=== PATIENT | male | born 1985 | race Caucasian/White ===

== ENCOUNTER 2018-01-20 18:33 | Emergency (ER) | payer OTHER ==
[2018-01-20] MEDS ORDERED: Aspirin 81 MG Tab.Chew PO ONE (19:06)
[2018-01-20] MEDS ORDERED: Sodium Chloride 0.9% 1,000 ML IV ONE (19:06)
[2018-01-20] MEDS ORDERED: GI Cocktail Oral Solution 30 ML PO ONE (19:29)
[2018-01-20] MEDS ORDERED: Pantoprazole 40 MG Vial IVPUSH ONE (19:29)
--- NOTE | 2018-01-20 19:36 | EDM.PDOC ---
ED HPI GENERAL MEDICAL PROBLEM - General Chief Complaint: Chest Pain Stated Complaint: Chest Pain Time Seen by Provider: 01/20/18 18:34 Source of Information: Reports: Patient, Family, RN, RN Notes Reviewed History Limitations: Reports: No Limitations - History of Present Illness INITIAL COMMENTS - FREE TEXT/NARRATIVE: Patient presents to the ED at [facility] complaining of chest pain that started around 14:30 this afternoon. Patient states his chest pain is substernal without any radiation. Patient denies any focal neurological deficits or symptoms. He states he did eat fast food for lunch. He denies any SOB. No cough. Denies any abdominal pain. Patient states his chest pain is sharp and stabbing. Pain is constant. Patient is a known diabetic on Triseba and Metformin. He sees Nephrology for nephrotic syndrome. He recently stopped taking Prednisone and start Prograf today. Patient was diagnosed with nephrotic syndrome as a child. He takes a burst dose of prednisone when he has peripheral edema and this resolves pretty quickly on the prednisone. He recently saw his PCP after one year. He ran out of his basal insulin a couple of weeks ago so his sugars have been running in the 300's. He recently seen Nephrology. It was recommend he stay off the Prednisone to see if he has any relapses. Onset: Today, Sudden Onset Date: 01/20/18 Onset Time: 14:30 Duration: Constant Location: Reports: Chest Quality: Reports: Sharp, Stabbing Severity: Moderate Improves with: Reports: None Worsens with: Reports: None Context: Denies: Activity, Sick Contact, Trauma Associated Symptoms: Reports: No Other Symptoms Mid-Sternal Chest Pain Score (Numeric/FACES): 7 - Related Data Allergies Allergy/AdvReac Type Severity Reaction Status Date / Time No Known Allergies Allergy Verified 01/20/18 20:05 ED ROS GENERAL - Review of Systems Review Of Systems: See Below Constitutional: Denies: Fever, Chills, Weakness Respiratory: Denies: Shortness of Breath, Cough Cardiovascular: Reports: Chest Pain. Denies: Blood Pressure Problem, Palpitations GI/Abdominal: Denies: Abdominal Pain, Nausea, Vomiting Skin: Reports: No Symptoms Neurological: Reports: No Symptoms. Denies: Dizziness, Headache ED EXAM, GENERAL - Physical Exam Exam: See Below Exam Limited By: No Limitations General Appearance: Alert, No Apparent Distress Respiratory/Chest: No Respiratory Distress, Lungs Clear, Normal Breath Sounds Cardiovascular: Normal Peripheral Pulses, Regular Rate, Rhythm, No Edema Peripheral Pulses: 2+: Radial (L), Radial (R) GI/Abdominal: Normal Bowel Sounds, Soft, Non-Tender Neurological: Alert, Oriented Skin Exam: Warm, Dry, Intact, Normal Color EKG INTERPRETATION EKG Date: 01/20/18 Time: 18:43 Rhythm: NSR Rate (Beats/Min): 73 [place]: Normal P-Wave: Present QRS: Normal ST-T: Normal QT: Normal ID/PQ Interval: 0.16 Comparison: NA - No Prior EKG EKG Interpretation Comments: 1. Sinus Rhythm 2. Low voltage QRS in precordial leads Course - Vital Signs Last Recorded V/S: Last Vital Signs Temp 36.6 C 01/20/18 19:56 Pulse 76 01/20/18 19:56 Resp 16 01/20/18 19:56 BP 142/99 H 01/20/18 19:56 Pulse Ox 96 01/20/18 19:56 - Orders/Labs/Meds Orders: Active Orders 24 hr Category Date Time Status EKG 12 Lead [EKG Documentation Completion] [RC] STAT Care 01/20/18 18:42 Active Chest 2V [CR] Stat Exams 01/20/18 18:38 Taken Chest PE [Ang Chest] [CT] Stat Exams 01/20/18 19:56 Taken Peripheral IV Discontinue [OM.PC] Routine Oth 01/20/18 18:47 Ordered Labs: Laboratory Tests 01/20/18 01/20/18 01/20/18 Range/Units 18:58 18:58 18:58 WBC 9.2 (4.0-10.0) x10^3/uL RBC 5.53 (4.5-6.0) x10^6/uL Hgb 16.7 (14.0-18.0) g/dL Hct 45.9 (40.0-52.0) % MCV 83.0 (78.0-93.0) fL MCH 30.2 (26.0-32.0) pg MCHC 36.4 H (32.0-36.0) g/dL RDW Coeff of Ying 12.6 (10.0-15.0) % Plt Count 278 (130-400) x10^3/uL Neut % (Auto) 59.4 (50.0-80.0) % Lymph % (Auto) 32.2 (25.0-50.0) % [place] % (Auto) 6.2 (2.0-11.0) % Eos % (Auto) 2.0 (0.0-4.0) % Baso % (Auto) 0.2 (0.2-1.2) % PT (9.6-11.4) SEC INR (2.0-3.5) D-Dimer, Quantitative 0.70 H (<=0.58) mg/LFEU Sodium 137 (136-145) mmol/L Potassium 4.2 (3.5-5.1) mmol/L Chloride 105 (98-107) mmol/L Carbon Dioxide 25 (21-32) mmol/L Anion Gap 11.2 (10-20) mmol/L BUN 10 (7-18) mg/dL Creatinine 0.7 (0.70-1.30) mg/dL Est Cr Clr Drug Dosing TNP Estimated GFR (MDRD) > 60 Glucose 209 H (74-106) mg/dL Calcium 9.2 (8.5-10.1) mg/dL Corrected Calcium 10.88 H (8.5-10.1) mg/dL Total Bilirubin 0.2 (0.2-1.0) mg/dL AST 21 (15-37) U/L ALT 37 (16-63) U/L Alkaline Phosphatase 83 (46-116) U/L Creatine Kinase 92 (39-308) U/L POC Troponin I (0.00-0.08) ng/mL Total Protein 6.4 (6.4-8.2) g/dL Albumin 1.9 L (3.4-5.0) g/dL Globulin 4.5 Albumin/Globulin Ratio 0.42 01/20/18 01/20/18 Range/Units 18:58 19:09 WBC (4.0-10.0) x10^3/uL RBC (4.5-6.0) x10^6/uL Hgb (14.0-18.0) g/dL Hct (40.0-52.0) % MCV (78.0-93.0) fL MCH (26.0-32.0) pg MCHC (32.0-36.0) g/dL RDW Coeff of Ying (10.0-15.0) % Plt Count (130-400) x10^3/uL Neut % (Auto) (50.0-80.0) % Lymph % (Auto) (25.0-50.0) % [place] % (Auto) (2.0-11.0) % Eos % (Auto) (0.0-4.0) % Baso % (Auto) (0.2-1.2) % PT 9.3 L (9.6-11.4) SEC INR 0.9 L (2.0-3.5) D-Dimer, Quantitative (<=0.58) mg/LFEU Sodium (136-145) mmol/L Potassium (3.5-5.1) mmol/L Chloride (98-107) mmol/L Carbon Dioxide (21-32) mmol/L Anion Gap (10-20) mmol/L BUN (7-18) mg/dL Creatinine (0.70-1.30) mg/dL Est Cr Clr Drug Dosing Estimated GFR (MDRD) Glucose (74-106) mg/dL Calcium (8.5-10.1) mg/dL Corrected Calcium (8.5-10.1) mg/dL Total Bilirubin (0.2-1.0) mg/dL AST (15-37) U/L ALT (16-63) U/L Alkaline Phosphatase (46-116) U/L Creatine Kinase (39-308) U/L POC Troponin I 0.01 (0.00-0.08) ng/mL Total Protein (6.4-8.2) g/dL Albumin (3.4-5.0) g/dL Globulin Albumin/Globulin Ratio Meds: Medications Discontinued Medications Generic Name Dose Route Start Last Admin Trade Name Freq PRN Reason Stop Dose Admin Al Hydroxide/Mg Hydroxide 30 ml 01/20/18 19:29 01/20/18 19:50 Gi Cocktail PO 01/20/18 19:30 30 ml ONETIME ONE Administration Aspirin 324 mg 01/20/18 19:06 01/20/18 19:30 Aspirin PO 01/20/18 19:07 324 mg ONETIME ONE Administration Sodium Chloride 1,000 mls @ 999 mls/hr 01/20/18 19:06 01/20/18 19:32 Normal Saline IV 01/20/18 20:06 999 mls/hr ONETIME ONE Administration Iopamidol 100 ml 01/20/18 20:35 01/20/18 20:35 Isovue-300 (61%) IVPUSH 01/20/18 20:36 100 ml ONETIME ONE Administration Pantoprazole Sodium 40 mg 01/20/18 19:29 01/20/18 19:52 Protonix Iv IVPUSH 01/20/18 19:30 40 mg ONETIME ONE Administration - Radiology Interpretation Free Text/Narrative:: CXR: Normal examination of the chest CTA Chest: Negative for PE, normal exam See scanned reports in EMR CT Results Date: 01/20/18 CT Results Time: 20:55 - Re-Assessments/Exams Free Text/Narrative Re-Assessment/Exam: 01/20/18 20:54 Visited with patient and his regarding all tests. Does not appear to be cardiac in nature at this point. Patient is very vague with his symptoms at this point. He states he still feels "some pressure" but can not really characterize it. The pain is improved but he is not sure how much improved. VSS. No changes since patient was admitted. Departure - Departure Time of Disposition: 21:01 Disposition: Home, Self-Care 01 Reason for Transfer *Q: Other Condition: Good Clinical Impression: Atypical chest pain Instructions: Nonspecific Chest Pain Referrals: Lui De Guzman MD [Primary Care Provider] - Forms: ED Department Discharge Additional Instructions: 1. Stay well hydrated and rest 2. Eat a bland diet, avoid greasy fatty foods for the next few days 3. May use OTC tums or Prilosec if symptoms return 4. See your Primary in clinic for follow up as symptoms warrant - Problem List Review Problem List Initiated/Reviewed/Updated: Yes - My Orders Last 24 Hours: My Active Orders 01/20/18 18:38 Chest 2V [CR] Stat 01/20/18 18:42 EKG 12 Lead [EKG Documentation Completion] [RC] STAT 01/20/18 18:47 Peripheral IV Discontinue [OM.PC] Routine 01/20/18 19:56 Chest PE [Ang Chest] [CT] Stat - Assessment/Plan Last 24 Hours: My Active Orders 01/20/18 18:38 Chest 2V [CR] Stat 01/20/18 18:42 EKG 12 Lead [EKG Documentation Completion] [RC] STAT 01/20/18 18:47 Peripheral IV Discontinue [OM.PC] Routine 01/20/18 19:56 Chest PE [Ang Chest] [CT] Stat Assessment:: Atypical chest pain Plan: Reviewed CT and labs again with patient. Suspect this is more GERD than cardiac etiology. I did offer admission for serial enzymes but patient declined. Recommend follow up with PCP. If chest pain returns, needs to come back to ER. I did discussed with patient and they may want to have the gallblader worked up as an outpatient. Patient verbalized understanding and agrees with POC.
[2018-01-20 19:38] LABS: ANION GAP 11.2 mmol/L (10-20); CHLORIDE,CL 105 mmol/L (98-107); SODIUM,NA 137 mmol/L (136-145)
[2018-01-20] MEDS ORDERED: Iopamidol 612 MG/ML 100 ML Bottle IVPUSH ONE (20:35)
== END 2018-01-20 21:07 | disposition home or self-care (01) ==
LOC: VM.ED 18:33
DX: R07.89 Other chest pain (principal); E11.9 Type 2 diabetes mellitus without complications; Z79.84 Long term (current) use of oral hypoglycemic drugs
CPT/HCPCS: 36415; 71046; 71275; 80053; 82550; 84484; 85025; 85379; 85610; 93005; 96361; 96374; 99285; A9270-GY; C9113; J7030; Q9967

== ENCOUNTER 2018-08-29 10:44 | Inpatient (IN) | payer OTHER ==
[2018-08-29] MEDS ORDERED: Sodium Chloride 0.9% 10 ML Syringe FLUSH PRN (10:52)
[2018-08-29] MEDS ORDERED: Ondansetron 4 MG/2 ML SDV IVPUSH ONE (10:54)
[2018-08-29] MEDS ORDERED: Sodium Chloride 0.9% 1,000 ML IV ONE (10:54)
--- NOTE | 2018-08-29 10:57 | EDM.PDOC ---
ED HPI GENERAL MEDICAL PROBLEM - General Chief Complaint: General Stated Complaint: DEHYDRATION Time Seen by Provider: 08/29/18 10:48 Source of Information: Reports: Patient History Limitations: Reports: No Limitations - History of Present Illness INITIAL COMMENTS - FREE TEXT/NARRATIVE: Patient comes into the emergency department with complaint of abdominal discomfort.Pt was being seen at [facility] for his diabetes mellitus and nephrotic syndrome. He has recently had some changes in his medication regimen he started taking Victoza a short period of time ago. However he did not tolerate the medication he became nauseated, vomiting, and had abdominal discomfort. Once he stopped the medication he was hopeful that the symptoms would resolve. He was feeling better for "a couple days" but noticed an increase in his swelling so started taking his prednisone 60mg daily. He noticed very quickly his blood sugars elevated, he became nauseated, and has been unable to keep food down. He has so noticed a decrease in his urine output and a significant amount of abdominal pain radiating to the left flank region. He denies any recent illnesses or infections and denies any fevers. Weight: 08/08-320 08/14 327 08/29 333 Blood sugar 08/28- >400 08/29- 328 Onset: Gradual Quality: Reports: Throbbing, Other Severity: Moderate Improves with: Reports: None Worsens with: Reports: None Context: Reports: Other Associated Symptoms: Reports: Loss of Appetite, Malaise, Nausea/Vomiting, Weakness - Related Data Allergies Allergy/AdvReac Type Severity Reaction Status Date / Time No Known Allergies Allergy Verified 08/29/18 11:01 Home Meds: Home Meds Furosemide [Lasix] 20 mg PO BID 08/29/18 [History] Insulin Degludec [Tresiba] 66 unit SQ DAILY 08/29/18 [History] Liraglutide [Victoza 3-Naveed] 1.8 mg SQ DAILY 08/29/18 [History] atorvaSTATin Calcium [Lipitor] 20 mg PO DAILY 08/29/18 [History] metFORMIN HCl [Metformin HCl] 1,000 mg PO BID 08/29/18 [History] predniSONE 60 mg PO DAILY 08/29/18 [History] Past Medical History Genitourinary History: Reports: Other (See Below) Other Genitourinary History: nephrotic syndrome Endocrine/Metabolic History: Reports: Diabetes, Type II ED ROS GENERAL - Review of Systems Review Of Systems: See Below Constitutional: Reports: Decreased Appetite, Weight Gain HEENT: Reports: No Symptoms Respiratory: Reports: No Symptoms Cardiovascular: Reports: Edema Endocrine: Reports: No Symptoms GI/Abdominal: Reports: Abdominal Pain, Nausea, Vomiting : Reports: Flank Pain, Other (decrease output from his nomral ) Musculoskeletal: Reports: No Symptoms Skin: Reports: Pallor Neurological: Reports: No Symptoms Psychiatric: Reports: No Symptoms Hematologic/Lymphatic: Reports: No Symptoms Immunologic: Reports: No Symptoms ED EXAM, GENERAL - Physical Exam Exam: See Below Exam Limited By: No Limitations General Appearance: Alert, WD/WN, No Apparent Distress Eye Exam: Bilateral Eye: EOMI, PERRL Throat/Mouth: Normal Inspection, Normal Lips, No Airway Compromise Head: Atraumatic, Normocephalic Neck: Normal Inspection, Supple, Non-Tender, Full Range of Motion Respiratory/Chest: No Respiratory Distress, Lungs Clear, Normal Breath Sounds, No Accessory Muscle Use, Chest Non-Tender GI/Abdominal: Distended, Tender, Abnormal Bowel Sounds Back Exam: Normal Inspection, Full Range of Motion, Other (L flank pain upon palpation ) Extremities: Pedal Edema, Slow Capillary Refill Neurological: Alert, Oriented, Normal Cognition, Normal Gait Psychiatric: Normal Affect, Normal Mood Skin Exam: Pallor Course - Vital Signs Last Recorded V/S: Last Vital Signs Temp 36.8 C 08/29/18 13:11 Pulse 98 08/29/18 13:11 Resp 14 08/29/18 13:11 BP 133/93 H 08/29/18 13:11 Pulse Ox 99 08/29/18 13:11 - Orders/Labs/Meds Orders: Active Orders 24 hr Category Date Time Status EKG Documentation Completion [RC] STAT Care 08/29/18 10:52 Active Sodium Chloride 0.9% [Saline Flush] Med 08/29/18 10:52 Active 10 ml FLUSH ASDIRECTED PRN Peripheral IV Insertion Adult [OM.PC] Stat Oth 08/29/18 10:52 Ordered Medication Orders Atorvastatin Calcium (Lipitor) 20 mg PO DAILY [facility] Furosemide (Lasix) 20 mg IV BIDDIURETIC [facility] Sodium Chloride (Normal Saline) 1,000 mls @ 50 mls/hr IV ASDIRECTED [facility] Magnesium Sulfate 4 gm/ Premix 100 mls @ 25 mls/hr IV ONETIME ONE Stop: 08/29/18 18:26 Insulin Human Regular (Humulin R) 0 unit SUBCUT TIDMEALS [facility]; Protocol Lisinopril (Prinivil) 5 mg PO DAILY [facility] Metformin HCl (Glucophage) 1,000 mg PO BIDMEALS [facility] Non-Formulary Medication (Insulin Degludec [Tresiba]) 66 unit SQ DAILY [facility] Prednisone (Prednisone) 60 mg PO DAILY [facility] Sodium Chloride (Saline Flush) 10 ml FLUSH ASDIRECTED PRN PRN Reason: Keep Vein Open Last Admin: 08/29/18 11:23 Dose: 10 ml Labs: Laboratory Tests 08/29/18 08/29/18 08/29/18 Range/Units 11:02 11:02 11:02 WBC 14.9 H (4.0-10.0) x10^3/uL RBC 5.75 (4.5-6.0) x10^6/uL Hgb 16.9 (14.0-18.0) g/dL Hct 47.0 (40.0-52.0) % MCV 81.7 (78.0-93.0) fL MCH 29.4 (26.0-32.0) pg MCHC 36.0 (32.0-36.0) g/dL RDW Coeff of Ying 12.9 (10.0-15.0) % Plt Count 323 (130-400) x10^3/uL Neut % (Auto) 66.3 (50.0-80.0) % Lymph % (Auto) 22.6 L (25.0-50.0) % [place] % (Auto) 8.5 (2.0-11.0) % Eos % (Auto) 2.2 (0.0-4.0) % Baso % (Auto) 0.4 (0.2-1.2) % Sodium 128 L* (136-145) mmol/L Potassium 4.5 (3.5-5.1) mmol/L Chloride 96 L (98-107) mmol/L Carbon Dioxide 23 (21-32) mmol/L Anion Gap 13.5 (10-20) mmol/L BUN 33 H (7-18) mg/dL Creatinine 1.1 (0.70-1.30) mg/dL Est Cr Clr Drug Dosing TNP Estimated GFR (MDRD) > 60 Glucose 367 H (74-106) mg/dL Calcium 8.7 (8.5-10.1) mg/dL Corrected Calcium 10.62 H (8.5-10.1) mg/dL Magnesium 1.6 L (1.8-2.4) mg/dL Total Bilirubin 0.4 (0.2-1.0) mg/dL AST 9 L (15-37) U/L ALT 13 L (16-63) U/L Alkaline Phosphatase 101 (46-116) U/L NT-Pro-B Natriuret Pep 9 (<=125) pg/mL Total Protein 6.2 L (6.4-8.2) g/dL Albumin 1.6 L (3.4-5.0) g/dL Globulin 4.6 Albumin/Globulin Ratio 0.35 Amylase 18 L (25-115) U/L Lipase 103 (73-393) U/L Urine Color (YELLOW) Urine Appearance (CLEAR) Urine pH (5.0-8.0) Ur Specific [place] Urine Protein (NEGATIVE) mg/dL Urine Glucose (UA) (NEGATIVE) mg/dL Urine Ketones (NEGATIVE) mg/dL Urine Occult Blood (NEGATIVE) Urine Nitrite (NEGATIVE) Urine Bilirubin (NEGATIVE) Urine Urobilinogen (0.2) EU/dL Ur Leukocyte Esterase (NEGATIVE) Urine RBC (NOT SEEN) /HPF Urine WBC (NOT SEEN) /HPF Ur Squamous Epith Cells (NEGATIVE) /HPF Urine Bacteria (NEGATIVE) /HPF Hyaline Casts (NEGATIVE) /HPF Urine Mucus (NEGATIVE) /LPF 08/29/18 Range/Units 11:23 WBC (4.0-10.0) x10^3/uL RBC (4.5-6.0) x10^6/uL Hgb (14.0-18.0) g/dL Hct (40.0-52.0) % MCV (78.0-93.0) fL MCH (26.0-32.0) pg MCHC (32.0-36.0) g/dL RDW Coeff of Ying (10.0-15.0) % Plt Count (130-400) x10^3/uL Neut % (Auto) (50.0-80.0) % Lymph % (Auto) (25.0-50.0) % [place] % (Auto) (2.0-11.0) % Eos % (Auto) (0.0-4.0) % Baso % (Auto) (0.2-1.2) % Sodium (136-145) mmol/L Potassium (3.5-5.1) mmol/L Chloride (98-107) mmol/L Carbon Dioxide (21-32) mmol/L Anion Gap (10-20) mmol/L BUN (7-18) mg/dL Creatinine (0.70-1.30) mg/dL Est Cr Clr Drug Dosing Estimated GFR (MDRD) Glucose (74-106) mg/dL Calcium (8.5-10.1) mg/dL Corrected Calcium (8.5-10.1) mg/dL Magnesium (1.8-2.4) mg/dL Total Bilirubin (0.2-1.0) mg/dL AST (15-37) U/L ALT (16-63) U/L Alkaline Phosphatase (46-116) U/L NT-Pro-B Natriuret Pep (<=125) pg/mL Total Protein (6.4-8.2) g/dL Albumin (3.4-5.0) g/dL Globulin Albumin/Globulin Ratio Amylase (25-115) U/L Lipase (73-393) U/L Urine Color Dark yellow H (YELLOW) Urine Appearance Clear (CLEAR) Urine pH 5.5 (5.0-8.0) Ur Specific [place] >=1.030 Urine Protein >=300 H (NEGATIVE) mg/dL Urine Glucose (UA) 250 H (NEGATIVE) mg/dL Urine Ketones Negative (NEGATIVE) mg/dL Urine Occult Blood Moderate H (NEGATIVE) Urine Nitrite Negative (NEGATIVE) Urine Bilirubin Negative (NEGATIVE) Urine Urobilinogen 0.2 (0.2) EU/dL Ur Leukocyte Esterase Negative (NEGATIVE) Urine RBC 0-5 (NOT SEEN) /HPF Urine WBC 0-5 (NOT SEEN) /HPF Ur Squamous Epith Cells Not seen (NEGATIVE) /HPF Urine Bacteria Not seen (NEGATIVE) /HPF Hyaline Casts Few H (NEGATIVE) /HPF Urine Mucus Not seen (NEGATIVE) /LPF Meds: Medications Generic Name Dose Route Start Last Admin Trade Name Freq PRN Reason Stop Dose Admin Atorvastatin Calcium 20 mg 08/30/18 08:00 Lipitor PO DAILY [facility] Furosemide 20 mg 08/30/18 08:00 Lasix IV BIDDIURETIC [facility] Sodium Chloride 1,000 mls @ 50 mls/hr 08/29/18 14:15 Normal Saline IV ASDIRECTED [facility] Magnesium Sulfate 4 gm/ Premix 100 mls @ 25 mls/hr 08/29/18 14:27 IV 08/29/18 18:26 ONETIME ONE Insulin Human Regular 0 unit 08/29/18 18:00 Humulin R SUBCUT TIDMEALS [facility] Protocol Lisinopril 5 mg 08/29/18 14:15 Prinivil PO DAILY [facility] Metformin HCl 1,000 mg 08/29/18 18:00 Glucophage PO BIDMEALS [facility] Non-Formulary Medication 66 unit 08/30/18 08:00 Insulin Degludec [Tresiba] SQ DAILY [facility] Prednisone 60 mg 08/30/18 08:00 Prednisone PO DAILY [facility] Sodium Chloride 10 ml 08/29/18 10:52 08/29/18 11:23 Saline Flush FLUSH 10 ml ASDIRECTED PRN Administration Keep Vein Open Discontinued Medications Generic Name Dose Route Start Last Admin Trade Name Freq PRN Reason Stop Dose Admin Furosemide 40 mg 08/29/18 11:08 08/29/18 11:23 Lasix IV 08/29/18 11:09 40 mg ONETIME ONE Administration Sodium Chloride 1,000 mls @ 500 mls/hr 08/29/18 10:54 08/29/18 11:20 Normal Saline IV 08/29/18 12:53 500 mls/hr ONETIME ONE Administration Ondansetron HCl 4 mg 08/29/18 10:54 08/29/18 11:20 Zofran IVPUSH 08/29/18 10:55 4 mg ONETIME ONE Administration Departure - Departure Time of Disposition: 14:00 Disposition: Admitted As Inpatient 64 Clinical Impression: Hyperglycemia, Fluid retention, Dehydration, Nephrotic syndrome Uncontrolled diabetes mellitus Qualifiers: Diabetes mellitus type: type 2 Glycemic state: with hyperglycemia Qualified Code(s): E11.65 - Type 2 diabetes mellitus with hyperglycemia - Discharge Information *PRESCRIPTION DRUG MONITORING PROGRAM REVIEWED*: No *COPY OF PRESCRIPTION DRUG MONITORING REPORT IN PATIENT [place]: No - Problem List Review Problem List Initiated/Reviewed/Updated: Yes - My Orders Last 24 Hours: My Active Orders 08/29/18 10:52 EKG Documentation Completion [RC] STAT Sodium Chloride 0.9% [Saline Flush] 10 ml FLUSH ASDIRECTED PRN Peripheral IV Insertion Adult [OM.PC] Stat - Assessment/Plan Last 24 Hours: My Active Orders 08/29/18 10:52 EKG Documentation Completion [RC] STAT Sodium Chloride 0.9% [Saline Flush] 10 ml FLUSH ASDIRECTED PRN Peripheral IV Insertion Adult [OM.PC] Stat Assessment:: 1. nausea/vomiting 2. fluid retention 3. Abdominal pain/flank pain 4. hyperglycemia Plan: 1. Labs completed in the ER. 2. CT scan completed in the ER- negative findings 3. IV with fluids provided in the ER 4. Lasix 40mg IV 5. Pt still does not feel much improvement with 1 L fluids. Pt however he is no longer nauseated. 6. Critical sodium level called via lab department 7. Consult completed with Navjot Mathew. He is agreeable to admit the patient to acute care for further medical management and treatment. A consultation by Navjot Mathew was completed with Endocrinology in [place] who suggest 8. All questions and concerns were addressed
[2018-08-29] MEDS ORDERED: Furosemide 40 MG/4 ML VIAL IV ONE (11:08)
[2018-08-29 11:37] LABS: CHLORIDE,CL 96 mmol/L (98-107)
[2018-08-29 11:39] LABS: ANION GAP 13.5 mmol/L (10-20); SODIUM,NA 128 mmol/L (136-145)
--- NOTE | 2018-08-29 11:52 | CT ---
[id number] CT/CT Abdomen Pelvis WO IV EXAM: CT Abdomen Pelvis WO IV CLINICAL DATA: ABDOMINAL PAIN. COMPARISON STUDY: None. FINDINGS: No urinary tract calculi or evidence of urinary tract obstruction. Within limitations of no contrast material, remainder of the solid abdominal viscera is unremarkable. Few scattered colonic diverticula. No bowel obstruction or inflammation. Appendix is normal. No lymphadenopathy, free fluid, or pneumoperitoneum. Urinary bladder is unremarkable. Scattered changes of spondylosis the spine. No fracture or osseous lesion. IMPRESSION: Negative for urinary tract calculi, obstruction, or other acute findings in the abdomen/pelvis. Colin Zhang MD 08/29/18 [id number] Thank you for allowing us to participate in the care of your patient.
[2018-08-29] MEDS ORDERED: Sodium Chloride 0.9% 1,000 ML IV SCH (14:15)
[2018-08-29] MEDS ORDERED: Magnesium Sulfate/Water 4 GM in Premix Bag 1 BAG IV ONE (14:27)
--- NOTE | 2018-08-29 14:27 | PCM.HP ---
H&P History of Present Illness - General Date of Service: 08/29/18 Admit Problem/Dx: Admission Diagnosis/Problem Admission Diagnosis/Problem Uncontrolled diabetes mellitus Hyperglycemia Dehydration Fluid retention Nephrotic Syndrome Hyponatremia Source of Information: Patient, Old Records, RN, RN Notes Reviewed History Limitations: Reports: No Limitations - History of Present Illness Initial Comments - Free Text/Narative: 33 yo male patient presented to the [facility] earlier today for elevated blood sugars, nausea and vomiting, clinical dehydration, and abdominal pain. Given assessment findings, it was recommend patient be seen at the ED at [facility] for further workup. Patient's vitals were stable and afebrile in the ED. Labs showed a low NA of 128, glucose of 367, and positive UA. Patient was given IVF, Zofran, and Lasix in the ED. CT scan of abdomen was negative for any acute pathology. Patient was diagnosed with Nephrotic syndrome as a child. He developed Type II DM about 2 years ago. He has had difficulty in controlling his blood sugars. His nephrotic syndrome has been treated with prednisone PRN. This has exacerbated his DM and he now takes Tresiba daily concurrently with Metformin BID. he recently started seeing me as his PCP April 2018. He is being followed by Nephrology and Endocrinology. He also has been seen by CDE and will be seeing a campaign specialist next week. Patient was started on Victoza on August 08, 2018 for high A1C's of 13.1 and 11.0 respectively. He states he started having nausea shortly after starting the Victoza. He continued to take it hoping the nausea will subside. He stop taking the Victoza last Saturday. His N/V seem to get somewhat better, but over the past few days, the N/V returned much worse. He started to take Prednisone last Saturday as he noticed an increase in frothiness in his urine. He states his blood sugars have been running in the 300-400 range. He developed abdominal pain 2 days ago. No diarrhea. He has not been able to keep fluids down. His last weight was 320 on August 08 and now today it is 333. He has a PRN Lasix order at home but states he did not take any for his water weight gain. Dry weight is unknown. Patient denies any chest pain or SOB. No focal neurological problems. No skin issues. Decision was made to admit patient for hyperglycemia in the setting of Type II DM on Prednisone. - Related Data Allergies/Adverse Reactions: Allergies Allergy/AdvReac Type Severity Reaction Status Date / Time No Known Allergies Allergy Verified 08/29/18 11:01 Home Medications: Home Meds Furosemide [Lasix] 20 mg PO BID 08/29/18 [History] Insulin Degludec [Tresiba] 66 unit SQ DAILY 08/29/18 [History] Liraglutide [Victoza 3-Naveed] 1.8 mg SQ DAILY 08/29/18 [History] atorvaSTATin Calcium [Lipitor] 20 mg PO DAILY 08/29/18 [History] metFORMIN HCl [Metformin HCl] 1,000 mg PO BID 08/29/18 [History] predniSONE 60 mg PO DAILY 08/29/18 [History] Past Medical History Genitourinary History: Reports: Other (See Below) Other Genitourinary History: nephrotic syndrome Endocrine/Metabolic History: Reports: Diabetes, Type II Social & Family History - Tobacco Use Smoking Status *Q: Never Smoker Second Hand Smoke Exposure: No - Caffeine Use Caffeine Use: Reports: Coffee, Soda - Recreational Drug Use Recreational Drug Use: No H&P Review of Systems - Review of Systems: Review Of Systems: See Below General: Reports: Weakness. Denies: Fever, Chills Pulmonary: Denies: Shortness of Breath, Cough Cardiovascular: Denies: Chest Pain, Palpitations Gastrointestinal: Reports: Abdominal Pain, Nausea, Vomiting. Denies: Diarrhea Genitourinary: Reports: Frequency Skin: Reports: No Symptoms Neurological: Reports: No Symptoms Exam - Exam Exam: See Below - Vital Signs Vital Signs: Last Vital Signs Temp 36.8 C 08/29/18 13:11 Pulse 98 08/29/18 13:11 Resp 14 08/29/18 13:11 BP 133/93 H 08/29/18 13:11 Pulse Ox 99 08/29/18 13:11 Weight: 150.338 kg - Exam Quality Assessment: No: DVT Prophylaxis, Skin Breakdown General: Alert, Oriented, Cooperative Lungs: Clear to Auscultation, Normal Respiratory Effort Cardiovascular: Regular Rate, Regular Rhythm GI/Abdominal Exam: Soft, Tender (General), Abnormal Bowel Sounds (Hypoactive) Extremities: Pedal Edema (+2 dependent pitting) Peripheral Pulses: 2+: Radial (L), Radial (R) Skin: Warm, Dry, Intact Neuro Extensive - Mental Status: Alert, Oriented x3 - Patient Data Lab Results Last 24 hrs: Laboratory Results - last 24 hr 08/29/18 08/29/18 08/29/18 Range/Units 11:02 11:02 11:02 WBC 14.9 H (4.0-10.0) x10^3/uL RBC 5.75 (4.5-6.0) x10^6/uL Hgb 16.9 (14.0-18.0) g/dL Hct 47.0 (40.0-52.0) % MCV 81.7 (78.0-93.0) fL MCH 29.4 (26.0-32.0) pg MCHC 36.0 (32.0-36.0) g/dL RDW Coeff of Ying 12.9 (10.0-15.0) % Plt Count 323 (130-400) x10^3/uL Neut % (Auto) 66.3 (50.0-80.0) % Lymph % (Auto) 22.6 L (25.0-50.0) % [place] % (Auto) 8.5 (2.0-11.0) % Eos % (Auto) 2.2 (0.0-4.0) % Baso % (Auto) 0.4 (0.2-1.2) % Sodium 128 L* (136-145) mmol/L Potassium 4.5 (3.5-5.1) mmol/L Chloride 96 L (98-107) mmol/L Carbon Dioxide 23 (21-32) mmol/L Anion Gap 13.5 (10-20) mmol/L BUN 33 H (7-18) mg/dL Creatinine 1.1 (0.70-1.30) mg/dL Est Cr Clr Drug Dosing TNP Estimated GFR (MDRD) > 60 Glucose 367 H (74-106) mg/dL Calcium 8.7 (8.5-10.1) mg/dL Corrected Calcium 10.62 H (8.5-10.1) mg/dL Magnesium 1.6 L (1.8-2.4) mg/dL Total Bilirubin 0.4 (0.2-1.0) mg/dL AST 9 L (15-37) U/L ALT 13 L (16-63) U/L Alkaline Phosphatase 101 (46-116) U/L NT-Pro-B Natriuret Pep 9 (<=125) pg/mL Total Protein 6.2 L (6.4-8.2) g/dL Albumin 1.6 L (3.4-5.0) g/dL Globulin 4.6 Albumin/Globulin Ratio 0.35 Amylase 18 L (25-115) U/L Lipase 103 (73-393) U/L Urine Color (YELLOW) Urine Appearance (CLEAR) Urine pH (5.0-8.0) Ur Specific [place] Urine Protein (NEGATIVE) mg/dL Urine Glucose (UA) (NEGATIVE) mg/dL Urine Ketones (NEGATIVE) mg/dL Urine Occult Blood (NEGATIVE) Urine Nitrite (NEGATIVE) Urine Bilirubin (NEGATIVE) Urine Urobilinogen (0.2) EU/dL Ur Leukocyte Esterase (NEGATIVE) Urine RBC (NOT SEEN) /HPF Urine WBC (NOT SEEN) /HPF Ur Squamous Epith Cells (NEGATIVE) /HPF Urine Bacteria (NEGATIVE) /HPF Hyaline Casts (NEGATIVE) /HPF Urine Mucus (NEGATIVE) /LPF 08/29/18 Range/Units 11:23 WBC (4.0-10.0) x10^3/uL RBC (4.5-6.0) x10^6/uL Hgb (14.0-18.0) g/dL Hct (40.0-52.0) % MCV (78.0-93.0) fL MCH (26.0-32.0) pg MCHC (32.0-36.0) g/dL RDW Coeff of Ying (10.0-15.0) % Plt Count (130-400) x10^3/uL Neut % (Auto) (50.0-80.0) % Lymph % (Auto) (25.0-50.0) % [place] % (Auto) (2.0-11.0) % Eos % (Auto) (0.0-4.0) % Baso % (Auto) (0.2-1.2) % Sodium (136-145) mmol/L Potassium (3.5-5.1) mmol/L Chloride (98-107) mmol/L Carbon Dioxide (21-32) mmol/L Anion Gap (10-20) mmol/L BUN (7-18) mg/dL Creatinine (0.70-1.30) mg/dL Est Cr Clr Drug Dosing Estimated GFR (MDRD) Glucose (74-106) mg/dL Calcium (8.5-10.1) mg/dL Corrected Calcium (8.5-10.1) mg/dL Magnesium (1.8-2.4) mg/dL Total Bilirubin (0.2-1.0) mg/dL AST (15-37) U/L ALT (16-63) U/L Alkaline Phosphatase (46-116) U/L NT-Pro-B Natriuret Pep (<=125) pg/mL Total Protein (6.4-8.2) g/dL Albumin (3.4-5.0) g/dL Globulin Albumin/Globulin Ratio Amylase (25-115) U/L Lipase (73-393) U/L Urine Color Dark yellow H (YELLOW) Urine Appearance Clear (CLEAR) Urine pH 5.5 (5.0-8.0) Ur Specific [place] >=1.030 Urine Protein >=300 H (NEGATIVE) mg/dL Urine Glucose (UA) 250 H (NEGATIVE) mg/dL Urine Ketones Negative (NEGATIVE) mg/dL Urine Occult Blood Moderate H (NEGATIVE) Urine Nitrite Negative (NEGATIVE) Urine Bilirubin Negative (NEGATIVE) Urine Urobilinogen 0.2 (0.2) EU/dL Ur Leukocyte Esterase Negative (NEGATIVE) Urine RBC 0-5 (NOT SEEN) /HPF Urine WBC 0-5 (NOT SEEN) /HPF Ur Squamous Epith Cells Not seen (NEGATIVE) /HPF Urine Bacteria Not seen (NEGATIVE) /HPF Hyaline Casts Few H (NEGATIVE) /HPF Urine Mucus Not seen (NEGATIVE) /LPF Result Diagrams: 08/29/18 11:02 08/29/18 11:02 Jay Results Last 24 hrs: Microbiology 08/29/18 10:58 Influenza Type A Antigen Screen - Final Nasal Aspirate, Unspecified NEGATIVE INFLUENZA A VIRUS AG Influenza Type B Antigen Screen - Final NEGATIVE INFLUENZA B VIRUS AG *Q Meaningful Use (ADM) - VTE *Q VTE Criteria *Q: No risk for fall No risk for VTE - Problem List (1) Uncontrolled diabetes mellitus SNOMED Code(s): 44582432, 193359950 ICD Code: E11.65 - TYPE 2 DIABETES MELLITUS WITH HYPERGLYCEMIA Status: Chronic Priority: High Current Visit: Yes Qualifiers: Diabetes mellitus type: type 2 Glycemic state: with hyperglycemia Qualified Code(s): E11.65 - Type 2 diabetes mellitus with hyperglycemia (2) Hyperglycemia SNOMED Code(s): 58472881 ICD Code: R73.9 - HYPERGLYCEMIA, UNSPECIFIED Status: Acute Priority: High Current Visit: Yes (3) Dehydration SNOMED Code(s): 24929642 ICD Code: E86.0 - DEHYDRATION Status: Acute Priority: Medium Current Visit: Yes (4) Fluid retention SNOMED Code(s): 91759894 ICD Code: R60.9 - EDEMA, UNSPECIFIED Status: Acute Priority: Medium Current Visit: Yes (5) Nephrotic syndrome SNOMED Code(s): 67978383 ICD Code: N04.9 - NEPHROTIC SYNDROME WITH UNSPECIFIED MORPHOLOGIC CHANGES Status: Chronic Current Visit: Yes (6) Hyponatremia SNOMED Code(s): 32449186 ICD Code: E87.1 - HYPO-OSMOLALITY AND HYPONATREMIA Status: Acute Priority : Medium Current Visit: Yes Problem List Initiated/Reviewed/Updated: Yes Orders Last 24hrs: Active Orders 24 hr Category Date Time Status Patient Status [ADT] Routine ADT 08/29/18 13:54 Ordered Accu Check [Blood Glucose Check, Bedside] [RC] Care 08/29/18 14:02 Ordered QIDACANDBED EKG Documentation Completion [RC] STAT Care 08/29/18 10:52 Active Height and Weight [RC] DAILY Care 08/29/18 13:53 Ordered Intake and Output [RC] QSHIFT Care 08/29/18 13:55 Ordered May Shower [RC] ASDIRECTED Care 08/29/18 13:53 Ordered Oxygen Therapy [RC] PRN Care 08/29/18 13:54 Ordered Up ad Yajaira [RC] ASDIRECTED Care 08/29/18 13:53 Ordered VTE/DVT Education [RC] PER UNIT ROUTINE Care 08/29/18 13:54 Ordered Vital Signs [RC] Q4H Care 08/29/18 13:54 Ordered Consult to Case Management/Environmental Epidemiologist [CONS] Cons 08/29/18 13:53 Ordered Routine [employer] Diet [DIET] Diet 08/29/18 Breakfast Active Low Sodium [Sodium Restricted Diet] [DIET] Diet 08/29/18 Dinner Ordered BASIC METABOLIC PANEL,BMP [CHEM] Routine Lab 08/30/18 05:11 Ordered CBC WITH AUTO DIFF [HEME] Routine Lab 08/30/18 05:11 Ordered MAGNESIUM [CHEM] Routine Lab 08/30/18 05:11 Ordered PHOSPHORUS [CHEM] Routine Lab 08/30/18 05:11 Ordered Furosemide [Lasix] Med 08/30/18 08:00 Ordered 20 mg IV BIDDIURETIC Insulin Degludec [Tresiba] Med 08/30/18 08:00 Ordered 66 unit SQ DAILY Insulin Regular, Human [HumuLIN R] Med 08/29/18 18:00 Ordered See Protocol SUBCUT TIDMEALS Lisinopril [Prinivil] Med 08/29/18 14:15 Ordered 5 mg PO DAILY Sodium Chloride 0.9% @ 50 MLS/HR(1000ml) Med 08/29/18 14:15 Ordered Sodium Chloride 0.9% [Normal Saline] 1,000 ml IV ASDIRECTED Sodium Chloride 0.9% [Saline Flush] Med 08/29/18 10:52 Active 10 ml FLUSH ASDIRECTED PRN atorvaSTATin Calcium [Lipitor] Med 08/29/18 20:00 Ordered 20 mg PO DAILY metFORMIN HCl [Metformin HCl] Med 08/29/18 20:00 Ordered 1,000 mg PO BID predniSONE Med 08/30/18 08:00 Ordered 60 mg PO DAILY Do Not Administer NSAID Medications [AST] Click To Edit Oth 08/29/18 14:10 Ordered Peripheral IV Insertion Adult [OM.PC] Stat Oth 08/29/18 10:52 Ordered Resuscitation Status Routine Resus Stat 08/29/18 13:53 Ordered Medication Orders Furosemide (Lasix) 20 mg IV BIDDIURETIC ESTEBAN Sodium Chloride (Normal Saline) 1,000 mls @ 50 mls/hr IV ASDIRECTED ESTEBAN Insulin Human Regular (Humulin R) 0 unit SUBCUT TIDMEALS ESTEBAN; Protocol Lisinopril (Prinivil) 5 mg PO DAILY ESTEBAN Non-Formulary Medication (Atorvastatin Calcium [Lipitor]) 20 mg PO DAILY ESTEBAN Non-Formulary Medication (Insulin Degludec [Tresiba]) 66 unit SQ DAILY ESTEBAN Non-Formulary Medication (Metformin Hcl [Metformin Hcl]) 1,000 mg PO BID ESTEBAN Prednisone (Prednisone) 60 mg PO DAILY ESTEBAN Sodium Chloride (Saline Flush) 10 ml FLUSH ASDIRECTED PRN PRN Reason: Keep Vein Open Last Admin: 08/29/18 11:23 Dose: 10 ml Assessment/Plan Comment:: 33 yo male patient with a past medical history of Type II DM, Mixed hyperlipidemia, Nephrotic Syndrome, and obesity is admitted to the acute care floor at [facility] for uncontrolled DM with hyperglycemia, dehydration, fluid retention, N/V, and abdominal pain. Will gently rehydration with IVF watching weights carefully. IV lasix for fluid retention. Stop Victoza and start medium dose SSI. Check blood sugars TID meals and AC/HS. Goal for blood sugars is <130 with a target A1C of <7.0%. WBC's elevated due to hyperglycemia , no infection indicated. Replace Magnesium. No NSAIDS or IV contrast dye 2/2 to Nephrotic Syndrome. ADA diet with 1.5 gram sodium restriction. Early ambulation for DVT prophylaxis. Full Code. Patient agrees to be transferred to a higher level of care should the need arise. I do anticipate at this point patient will be admitted at 3-4 days depending up his blood sugars. Start Lisinopril 2/2 to Nephrotic syndrome even though blood pressure have been ok. I do anticipate patient will be discharge on SubQ insulin.
[2018-08-29] MEDS ORDERED: Ondansetron 4 MG/2 ML SDV IVPUSH PRN (14:44)
[2018-08-29] MEDS: Lisinopril 5 MG Tab PO SCH (15:02)
[2018-08-29] MEDS: metFORMIN 500 MG Tab PO SCH (17:33)
[2018-08-29] MEDS: Insulin Regular, Human 100 Units/ML 3 ML Vial SUBCUT SCH (17:34)
[2018-08-29] MEDS ORDERED: Insulin Regular, Human 100 Units/ML 3 ML Vial SUBCUT ONE (21:30)
[2018-08-30] MEDS ORDERED: atorvaSTATin 10 MG Tab PO SCH (08:00)
[2018-08-30] MEDS: Insulin Regular, Human 100 Units/ML 3 ML Vial SUBCUT SCH (08:00)
[2018-08-30] MEDS ORDERED: predniSONE 20 MG Tab PO SCH (08:00)
[2018-08-30] MEDS ORDERED: Furosemide 20 MG/2 ML VIAL IV SCH (08:00)
[2018-08-30] MEDS ORDERED: Insulin Glargine,Human Rec. Analog 100 Units/ML 3 ML Pen SUBCUT SCH (08:00)
[2018-08-30 08:05] LABS: ANION GAP 9.2 mmol/L (10-20); CHLORIDE,CL 102 mmol/L (98-107); SODIUM,NA 134 mmol/L (136-145)
[2018-08-30] MEDS: metFORMIN 500 MG Tab PO SCH (08:50)
[2018-08-30] MEDS: Lisinopril 5 MG Tab PO SCH (08:50)
--- NOTE | 2018-08-30 09:22 | PCM.DCSUM1 ---
Discharge Summary - Hospital Course HPI Initial Comments: 33 yo male patient presented to the [facility] earlier today for elevated blood sugars, nausea and vomiting, clinical dehydration, and abdominal pain. Given assessment findings, it was recommend patient be seen at the ED at [facility] for further workup. Patient's vitals were stable and afebrile in the ED. Labs showed a low NA of 128, glucose of 367, and positive UA. Patient was given IVF, Zofran, and Lasix in the ED. CT scan of abdomen was negative for any acute pathology. Patient was diagnosed with Nephrotic syndrome as a child. He developed Type II DM about 2 years ago. He has had difficulty in controlling his blood sugars. His nephrotic syndrome has been treated with prednisone PRN. This has exacerbated his DM and he now takes Tresiba daily concurrently with Metformin BID. he recently started seeing me as his PCP April 2018. He is being followed by Nephrology and Endocrinology. He also has been seen by CDE and will be seeing a mortuary beautician next week. Patient was started on Victoza on August 08, 2018 for high A1C's of 13.1 and 11.0 respectively. He states he started having nausea shortly after starting the Victoza. He continued to take it hoping the nausea will subside. He stop taking the Victoza last Saturday. His N/V seem to get somewhat better, but over the past few days, the N/V returned much worse. He started to take Prednisone last Saturday as he noticed an increase in frothiness in his urine. He states his blood sugars have been running in the 300-400 range. He developed abdominal pain 2 days ago. No diarrhea. He has not been able to keep fluids down. His last weight was 320 on August 08 and now today it is 333. He has a PRN Lasix order at home but states he did not take any for his water weight gain. Dry weight is unknown. Patient denies any chest pain or SOB. No focal neurological problems. No skin issues. Decision was made to admit patient for hyperglycemia in the setting of Type II DM on Prednisone. Diagnosis: Stroke: No Modified Meeker Scale: No Symptoms at All Modified Meeker Scale Score: 0 - Discharge Data Discharge Date: 08/30/18 Discharge Disposition: Home, Self-Care 01 Condition: Good - Discharge Diagnosis/Problem(s) (1) Uncontrolled diabetes mellitus SNOMED Code(s): 43973295, 382173696 ICD Code: E11.65 - TYPE 2 DIABETES MELLITUS WITH HYPERGLYCEMIA Status: Chronic Priority: High Current Visit: Yes Qualifiers: Diabetes mellitus type: type 2 Glycemic state: with hyperglycemia Qualified Code(s): E11.65 - Type 2 diabetes mellitus with hyperglycemia (2) Hyperglycemia SNOMED Code(s): 69320874 ICD Code: R73.9 - HYPERGLYCEMIA, UNSPECIFIED Status: Acute Priority: High Current Visit: Yes (3) Dehydration SNOMED Code(s): 82812149 ICD Code: E86.0 - DEHYDRATION Status: Resolved Priority: Medium Current Visit: Yes (4) Fluid retention SNOMED Code(s): 46572006 ICD Code: R60.9 - EDEMA, UNSPECIFIED Status: Acute Priority: Medium Current Visit: Yes (5) Nephrotic syndrome SNOMED Code(s): 80493156 ICD Code: N04.9 - NEPHROTIC SYNDROME WITH UNSPECIFIED MORPHOLOGIC CHANGES Status: Chronic Current Visit: Yes (6) Hyponatremia SNOMED Code(s): 49376060 ICD Code: E87.1 - HYPO-OSMOLALITY AND HYPONATREMIA Status: Acute Priority : Medium Current Visit: Yes - Patient Summary/Data Operative Procedure(s) Performed: None Consults: Consultations 08/29/18 13:53 Consult to Case Management/Cogeneration Technician [CONS] Routine 08/29/18 17:19 Consult to Hand Stone Polisher [CONS] Routine Labs Pending at D/C: UA Recommended Follow-up Testing/Procedures: Nephrology and mortuary beautician appts next week Planned Operative Procedure(s) after DC: None Hospital Course: Patient remained hemodynamically stable and afebrile. No issues with pain. Patient tolerated Subq insulin without any problems. Prednisone was stopped due to hyperglycemia. Tolerated diet ok. No issues with urination or BM's. Weight still elevated but stable. Blood sugars down to the low 200's at time of discharge. - Patient Instructions Diet: Diabetic Diet Activity: Rest and Relax Today Driving: Do Not Drive (today only) Showering/Bathing: May Shower Notify Provider of: Fever, Increased Pain, Nausea and/or Vomiting Other/Special Instructions: Blood sugars consistently above 300 - Discharge Plan *PRESCRIPTION DRUG MONITORING PROGRAM REVIEWED*: No *COPY OF PRESCRIPTION DRUG MONITORING REPORT IN PATIENT [place]: No Prescriptions/Med Rec: Insulin Regular, Human [HumuLIN R] 10 unit SUBCUT TIDMEALS #1 vial Lisinopril [Prinivil] 5 mg PO DAILY #30 tablet Home Medications: Home Meds Furosemide [Lasix] 20 mg PO BID 08/29/18 [History] Insulin Degludec [Tresiba] 66 unit SQ DAILY 08/29/18 [History] atorvaSTATin Calcium [Lipitor] 20 mg PO DAILY 08/29/18 [History] metFORMIN HCl [Metformin HCl] 1,000 mg PO BID 08/29/18 [History] predniSONE 60 mg PO DAILY 08/29/18 [History] Insulin Regular, Human [HumuLIN R] 10 unit SUBCUT TIDMEALS #1 vial 08/30/18 [Rx] Lisinopril [Prinivil] 5 mg PO DAILY #30 tablet 08/30/18 [Rx] Oxygen Therapy Mode: Room Air Patient Handouts: Type 2 Diabetes Mellitus, Diagnosis, Adult, Hyperglycemia, [id number] Referrals: Navjot Mathew, MANAGER STRATEGY [Primary Care Provider] - - Discharge Summary/Plan Comment DC Time >30 min.: Yes Discharge Summary/Plan Comment: Patient will be discharged home today. Needs to take Lasix daily, especially when taking Prednisone. Will start on Subq insulin TID with meals. Discussed injections and hyper/hypoglycemic events; sick holidays; and when to adjust when on Prednisone. Stop Victoza. Continue with Lisinopril. No other changes with medications. Will need to see me in clinic next week for a follow up. - General Info Date of Service: 08/30/18 Admission Dx/Problem (Free Text: Admission Diagnosis/Problem Admission Diagnosis/Problem Uncontrolled diabetes mellitus Hyperglycemia Dehydration Fluid retention Nephrotic Syndrome Hyponatremia Subjective Update: Patient offers no specific complaints today. He states his N/V has resolved. Ambulating independently. Tolerating diet ok. No issue with urination or BM's. Functional Status: Reports: Pain Controlled, Tolerating Diet, Ambulating, Urinating. Denies: New Symptoms Numeric/FACES Score: 0 - Review of Systems General: Denies: Fever, Chills Pulmonary: Denies: Shortness of Breath, Cough Cardiovascular: Denies: Chest Pain, Palpitations Gastrointestinal: Denies: Abdominal Pain, Nausea, Vomiting Skin: Reports: No Symptoms Neurological: Reports: No Symptoms - Patient Data Vitals - Most Recent: Last Vital Signs Temp 36.5 C 08/30/18 08:24 Pulse 86 08/30/18 08:24 Resp 20 08/30/18 08:24 BP 136/65 08/30/18 08:50 Pulse Ox 96 08/30/18 08:24 Weight - Most Recent: 153.405 kg I&O - Last 24 hours: Intake & Output 08/29/18 08/30/18 08/30/18 22:59 06:59 14:59 Intake Total 232 1258 Output Total 600 600 Balance -368 658 Lab Results - Last 24 hrs: Laboratory Results - last 24 hr 08/29/18 08/29/18 08/29/18 Range/Units 11:02 11:02 11:02 WBC 14.9 H (4.0-10.0) x10^3/uL RBC 5.75 (4.5-6.0) x10^6/uL Hgb 16.9 (14.0-18.0) g/dL Hct 47.0 (40.0-52.0) % MCV 81.7 (78.0-93.0) fL MCH 29.4 (26.0-32.0) pg MCHC 36.0 (32.0-36.0) g/dL RDW Coeff of Ying 12.9 (10.0-15.0) % Plt Count 323 (130-400) x10^3/uL Neut % (Auto) 66.3 (50.0-80.0) % Lymph % (Auto) 22.6 L (25.0-50.0) % [place] % (Auto) 8.5 (2.0-11.0) % Eos % (Auto) 2.2 (0.0-4.0) % Baso % (Auto) 0.4 (0.2-1.2) % Sodium 128 L* (136-145) mmol/L Potassium 4.5 (3.5-5.1) mmol/L Chloride 96 L (98-107) mmol/L Carbon Dioxide 23 (21-32) mmol/L Anion Gap 13.5 (10-20) mmol/L BUN 33 H (7-18) mg/dL Creatinine 1.1 (0.70-1.30) mg/dL Est Cr Clr Drug Dosing TNP Estimated GFR (MDRD) > 60 Glucose 367 H (74-106) mg/dL POC Glucose (74-106) mg/dL Calcium 8.7 (8.5-10.1) mg/dL Corrected Calcium 10.62 H (8.5-10.1) mg/dL Phosphorus (2.6-4.7) mg/dL Magnesium 1.6 L (1.8-2.4) mg/dL Total Bilirubin 0.4 (0.2-1.0) mg/dL AST 9 L (15-37) U/L ALT 13 L (16-63) U/L Alkaline Phosphatase 101 (46-116) U/L NT-Pro-B Natriuret Pep 9 (<=125) pg/mL Total Protein 6.2 L (6.4-8.2) g/dL Albumin 1.6 L (3.4-5.0) g/dL Globulin 4.6 Albumin/Globulin Ratio 0.35 Amylase 18 L (25-115) U/L Lipase 103 (73-393) U/L Urine Color (YELLOW) Urine Appearance (CLEAR) Urine pH (5.0-8.0) Ur Specific [place] Urine Protein (NEGATIVE) mg/dL Urine Glucose (UA) (NEGATIVE) mg/dL Urine Ketones (NEGATIVE) mg/dL Urine Occult Blood (NEGATIVE) Urine Nitrite (NEGATIVE) Urine Bilirubin (NEGATIVE) Urine Urobilinogen (0.2) EU/dL Ur Leukocyte Esterase (NEGATIVE) Urine RBC (NOT SEEN) /HPF Urine WBC (NOT SEEN) /HPF Ur Squamous Epith Cells (NEGATIVE) /HPF Urine Bacteria (NEGATIVE) /HPF Hyaline Casts (NEGATIVE) /HPF Urine Mucus (NEGATIVE) /LPF 08/29/18 08/29/18 08/29/18 Range/Units 11:23 17:11 20:26 WBC (4.0-10.0) x10^3/uL RBC (4.5-6.0) x10^6/uL Hgb (14.0-18.0) g/dL Hct (40.0-52.0) % MCV (78.0-93.0) fL MCH (26.0-32.0) pg MCHC (32.0-36.0) g/dL RDW Coeff of Ying (10.0-15.0) % Plt Count (130-400) x10^3/uL Neut % (Auto) (50.0-80.0) % Lymph % (Auto) (25.0-50.0) % [place] % (Auto) (2.0-11.0) % Eos % (Auto) (0.0-4.0) % Baso % (Auto) (0.2-1.2) % Sodium (136-145) mmol/L Potassium (3.5-5.1) mmol/L Chloride (98-107) mmol/L Carbon Dioxide (21-32) mmol/L Anion Gap (10-20) mmol/L BUN (7-18) mg/dL Creatinine (0.70-1.30) mg/dL Est Cr Clr Drug Dosing Estimated GFR (MDRD) Glucose (74-106) mg/dL POC Glucose 309 H 319 H (74-106) mg/dL Calcium (8.5-10.1) mg/dL Corrected Calcium (8.5-10.1) mg/dL Phosphorus (2.6-4.7) mg/dL Magnesium (1.8-2.4) mg/dL Total Bilirubin (0.2-1.0) mg/dL AST (15-37) U/L ALT (16-63) U/L Alkaline Phosphatase (46-116) U/L NT-Pro-B Natriuret Pep (<=125) pg/mL Total Protein (6.4-8.2) g/dL Albumin (3.4-5.0) g/dL Globulin Albumin/Globulin Ratio Amylase (25-115) U/L Lipase (73-393) U/L Urine Color Dark yellow H (YELLOW) Urine Appearance Clear (CLEAR) Urine pH 5.5 (5.0-8.0) Ur Specific [place] >=1.030 Urine Protein >=300 H (NEGATIVE) mg/dL Urine Glucose (UA) 250 H (NEGATIVE) mg/dL Urine Ketones Negative (NEGATIVE) mg/dL Urine Occult Blood Moderate H (NEGATIVE) Urine Nitrite Negative (NEGATIVE) Urine Bilirubin Negative (NEGATIVE) Urine Urobilinogen 0.2 (0.2) EU/dL Ur Leukocyte Esterase Negative (NEGATIVE) Urine RBC 0-5 (NOT SEEN) /HPF Urine WBC 0-5 (NOT SEEN) /HPF Ur Squamous Epith Cells Not seen (NEGATIVE) /HPF Urine Bacteria Not seen (NEGATIVE) /HPF Hyaline Casts Few H (NEGATIVE) /HPF Urine Mucus Not seen (NEGATIVE) /LPF 08/30/18 08/30/18 08/30/18 Range/Units 05:32 07:35 07:35 WBC 9.2 (4.0-10.0) x10^3/uL RBC 4.69 (4.5-6.0) x10^6/uL Hgb 13.9 L D (14.0-18.0) g/dL Hct 39.1 L (40.0-52.0) % MCV 83.4 (78.0-93.0) fL MCH 29.6 (26.0-32.0) pg MCHC 35.5 (32.0-36.0) g/dL RDW Coeff of Ying 12.5 (10.0-15.0) % Plt Count 269 (130-400) x10^3/uL Neut % (Auto) 55.5 (50.0-80.0) % Lymph % (Auto) 26.7 (25.0-50.0) % [place] % (Auto) 9.2 (2.0-11.0) % Eos % (Auto) 8.1 H (0.0-4.0) % Baso % (Auto) 0.5 (0.2-1.2) % Sodium 134 L (136-145) mmol/L Potassium 4.2 (3.5-5.1) mmol/L Chloride 102 (98-107) mmol/L Carbon Dioxide 27 (21-32) mmol/L Anion Gap 9.2 L (10-20) mmol/L BUN 22 H (7-18) mg/dL Creatinine 0.8 (0.70-1.30) mg/dL Est Cr Clr Drug Dosing 162.42 Estimated GFR (MDRD) > 60 Glucose 258 H (74-106) mg/dL POC Glucose 203 H (74-106) mg/dL Calcium 7.8 L (8.5-10.1) mg/dL Corrected Calcium (8.5-10.1) mg/dL Phosphorus 3.1 (2.6-4.7) mg/dL Magnesium 1.8 (1.8-2.4) mg/dL Total Bilirubin (0.2-1.0) mg/dL AST (15-37) U/L ALT (16-63) U/L Alkaline Phosphatase (46-116) U/L NT-Pro-B Natriuret Pep (<=125) pg/mL Total Protein (6.4-8.2) g/dL Albumin (3.4-5.0) g/dL Globulin Albumin/Globulin Ratio Amylase (25-115) U/L Lipase (73-393) U/L Urine Color (YELLOW) Urine Appearance (CLEAR) Urine pH (5.0-8.0) Ur Specific [place] Urine Protein (NEGATIVE) mg/dL Urine Glucose (UA) (NEGATIVE) mg/dL Urine Ketones (NEGATIVE) mg/dL Urine Occult Blood (NEGATIVE) Urine Nitrite (NEGATIVE) Urine Bilirubin (NEGATIVE) Urine Urobilinogen (0.2) EU/dL Ur Leukocyte Esterase (NEGATIVE) Urine RBC (NOT SEEN) /HPF Urine WBC (NOT SEEN) /HPF Ur Squamous Epith Cells (NEGATIVE) /HPF Urine Bacteria (NEGATIVE) /HPF Hyaline Casts (NEGATIVE) /HPF Urine Mucus (NEGATIVE) /LPF ALLISON Results - Last 24 hrs: Microbiology 08/29/18 10:58 Influenza Type A Antigen Screen - Final Nasal Aspirate, Unspecified NEGATIVE INFLUENZA A VIRUS AG Influenza Type B Antigen Screen - Final NEGATIVE INFLUENZA B VIRUS AG Med Orders - Current: Current Medications Atorvastatin Calcium (Lipitor) 20 mg PO DAILY [facility] Last Admin: 08/30/18 08:50 Dose: 20 mg Furosemide (Lasix) 20 mg IV BIDDIURETIC [facility] Last Admin: 08/30/18 08:55 Dose: 20 mg Insulin Glargine (Lantus Solostar) 66 units SUBCUT DAILY [facility] Last Admin: 08/30/18 08:03 Dose: 66 units Insulin Human Regular (Humulin R) 0 unit SUBCUT TIDMEALS [facility]; Protocol Last Admin: 08/29/18 17:34 Dose: 8 units Lisinopril (Prinivil) 5 mg PO DAILY [facility] Last Admin: 08/30/18 08:50 Dose: 5 mg Metformin HCl (Glucophage) 1,000 mg PO BIDMEALS [facility] Last Admin: 08/30/18 08:50 Dose: 1,000 mg Ondansetron HCl (Zofran) 4 mg IVPUSH Q8H PRN PRN Reason: Nausea Prednisone (Prednisone) 60 mg PO DAILY [facility] Sodium Chloride (Saline Flush) 10 ml FLUSH ASDIRECTED PRN PRN Reason: Keep Vein Open Last Admin: 08/29/18 11:23 Dose: 10 ml Discontinued Medications Furosemide (Lasix) 40 mg IV ONETIME ONE Stop: 08/29/18 11:09 Last Admin: 08/29/18 11:23 Dose: 40 mg Sodium Chloride (Normal Saline) 1,000 mls @ 500 mls/hr IV ONETIME ONE Stop: 08/29/18 12:53 Last Admin: 08/29/18 11:20 Dose: 500 mls/hr Sodium Chloride (Normal Saline) 1,000 mls @ 50 mls/hr IV ASDIRECTED ESTEBAN Last Admin: 08/29/18 14:54 Dose: 50 mls/hr Magnesium Sulfate 4 gm/ Premix 100 mls @ 25 mls/hr IV ONETIME ONE Stop: 08/29/18 18:26 Last Admin: 08/29/18 15:23 Dose: 25 mls/hr Insulin Human Regular (Humulin R) 10 unit SUBCUT ONETIME ONE Stop: 08/29/18 21:31 Last Admin: 08/29/18 21:36 Dose: 10 units Ondansetron HCl (Zofran) 4 mg IVPUSH ONETIME ONE Stop: 08/29/18 10:55 Last Admin: 08/29/18 11:20 Dose: 4 mg - Exam Quality Assessment: Denies: Skin Breakdown General: Reports: Alert, Oriented, Cooperative, No Acute Distress Lungs: Reports: Clear to Auscultation, Normal Respiratory Effort Cardiovascular: Reports: Regular Rate, Regular Rhythm GI/Abdominal Exam: Normal Bowel Sounds, Soft, Non-Tender Skin: Reports: Warm, Dry, Intact Neurological: Reports: No New Focal Deficit *Q Meaningful Use (DIS) - VTE *Q VTE Criteria *Q: No risk for falls or VTE at time of this discharge
== END 2018-08-30 11:00 | disposition home or self-care (01) | DRG 638 ==
LOC: VM.ED 10:44 → VM.MS 13:35
PROVIDERS: ADMIT Nurse Practitioner Family; ATTEND Nurse Practitioner Family
DX: E11.65 Type 2 diabetes mellitus with hyperglycemia (principal); E87.1 Hypo-osmolality and hyponatremia; E86.0 Dehydration; E11.21 Type 2 diabetes mellitus with diabetic nephropathy; R60.9 Edema, unspecified; E66.9 Obesity, unspecified; E78.2 Mixed hyperlipidemia; Z79.4 Long term (current) use of insulin; Z68.41 Body mass index [BMI] 40.0-44.9, adult; Z79.899 Other long term (current) drug therapy; Z79.52 Long term (current) use of systemic steroids
CPT/HCPCS: 36415; 74176; 80048; 80053; 81001; 82150; 82962; 83690; 83735; 83880; 84100; 85025; 87804; 87804-59; 93005; 96361; 96374; 96375; 99285-25; A9270-GY; J1815-GY; J1940; J2405; J3475; J7030